=== PATIENT | male | born 1970 | race Caucasian/White ===

== ENCOUNTER 2017-01-30 17:47 | Emergency (ER) | payer OTHER ==
[~2017-01-30] VITALS: Ht 195.6 cm; Wt 166.4 kg
[2017-01-30 20:17] VITALS: BP 115/78
== END 2017-01-30 22:12 | disposition home or self-care (01) ==
LOC: ED 20:15
DX: R60.0 Localized edema (principal)
CPT/HCPCS: 99284

== ENCOUNTER 2017-03-01 09:33 | Emergency (ER) | payer OTHER ==
[~2017-03-01] VITALS: Ht 195.6 cm; Wt 169.8 kg
[2017-03-01] MEDS ORDERED: KETOROLAC 30 MG/1 ML ONE (10:23)
[2017-03-01] MEDS ORDERED: ONDANSETRON 2MG/ML, 2ML ONE (10:23)
[2017-03-01] MEDS ORDERED: HYDROmorphone 1 MG/ML, 1ML ONE (10:23)
[2017-03-01] MEDS ORDERED: SODIUM CHLORIDE FLUSH 10ML SYR IVF ONE (10:30)
[2017-03-01] MEDS ORDERED: KETOROLAC 30 MG/1 ML IVPush ONE (10:30)
[2017-03-01] MEDS ORDERED: ONDANSETRON 2MG/ML, 2ML IVPush ONE (10:30)
[2017-03-01] MEDS ORDERED: HYDROmorphone 1 MG/ML, 1ML IVPush PRN (10:30)
[2017-03-01 10:47] LABS: BLOOD UREA NITROGEN 16 mg/dL (7-18)
[2017-03-01 13:02] VITALS: BP 138/90
== END 2017-03-01 13:18 | disposition home or self-care (01) ==
LOC: ED 11:07
DX: M79.604 Pain in right leg (principal); M79.89 Other specified soft tissue disorders
CPT/HCPCS: 36415; 73590; 80048; 82040; 85025; 93971; 96374; 96375; 99285; J1885; J2405